=== PATIENT | female | born 1990 | race Caucasian/White ===

== ENCOUNTER 2017-08-23 22:22 | Emergency (ER) | payer OTHER ==
[~2017-08-23] VITALS: Ht 165.1 cm; Wt 52.2 kg
[~2017-08-23 22:22] MED LIST: ALDACTONE100 MG; AMOX1TAB12 PO; FLUCONAZOLE150 MG PO; INTESTINEX680 MG PO
[2017-08-24] MEDS ORDERED: KETO10TA2 PO (03:28)
== END 2017-08-24 03:48 ==
LOC: ER 22:22
DX: R10.2 Pelvic and perineal pain (principal)